=== PATIENT | female | born 1955 | race African-American/Black ===

== ENCOUNTER 2023-09-26 05:22 | Emergency (ER) | payer OTHER ==
[~2023-09-26] VITALS: Ht 175.3 cm; Wt 78.0 kg
[2023-09-26 05:25] VITALS: TEMP 97.3; O2SAT 98
[2023-09-26 06:29] VITALS: BP 172/78; PULSE 78; RESP 19
[2023-09-26] MEDS ORDERED: TOPUD PO (07:06)
== END 2023-09-26 07:39 | disposition home or self-care (01) ==
LOC: ER 05:22
DX: S09.90XA Unspecified injury of head, initial encounter (principal); E11.9 Type 2 diabetes mellitus without complications; I10 Essential (primary) hypertension; W18.2XXA Fall in (into) shower or empty bathtub, initial encounter; Y93.89 Activity, other specified; Y92.89 Other specified places as the place of occurrence of the external cause; Y99.8 Other external cause status
CPT/HCPCS: 99284

== ENCOUNTER 2024-01-02 02:23 | Emergency (ER) | payer OTHER ==
[~2024-01-02] VITALS: Ht 165.1 cm; Wt 82.0 kg
[~2024-01-02 02:23] MED LIST: TOPUD PO
[2024-01-02 02:27] VITALS: O2SAT 100
[2024-01-02] MEDS ORDERED: MORPHINE SULFATE 4 MG/ML INJ (FOR IV/IM USE) IV STA (02:49)
[2024-01-02 03:26] LABS: BASOPHILS % 0.4 % (0.0-2.0); EOSINOPHILS % 0.7 % (0.0-5.0); HEMATOCRIT. 38.1 % (36.0-48.0); HEMOGLOBIN. 13.1 g/dL (12.0-16.0); LYMPHOCYTES % 23.6 % (20.0-50.0); MEAN CORPUSCULAR HEMOGLOBIN 28.5 pg (28.0-32.0); MEAN CORPUSCULAR HGB CONC 34.5 g/dL (31.0-37.0); MEAN CORPUSCULAR VOLUME 82.8 fL (81.0-99.0); MEAN PLATELET VOLUME 8.1 fl (7.4-10.4); MONOCYTES % 4.1 % (2.0-8.0); NEUTROPHILS % 71.2 % (40.0-76.0); PLATELET 316 x1000/uL (130-400); RED CELL DISTRIBUTION WIDTH 13.8 % (11.6-14.6); WHITE BLOOD COUNT 10.7 x1000/uL (4.5-11.0)
[2024-01-02 03:38] LABS: INR 0.9; PROTHROMBIN TIME 10.4 sec (9.6-11.0)
[2024-01-02 04:27] LABS: CHLORIDE 100 mEq/L (98-107); SODIUM 136 mEq/L (136-145)
[2024-01-02 04:28] LABS: ALBUMIN 4.3 g/dL (3.2-4.8); CALCIUM 9.5 mg/dL (8.7-10.4); CARBON DIOXIDE 21 mEq/L (21-32); GLUCOSE 265 mg/dL (70-105); PROTEIN TOTAL 7.9 g/dL (6.0-8.3); UREA NITROGEN BLOOD 15 mg/dL (9-23)
[2024-01-02 04:29] LABS: ALANINE AMINOTRANSFERASE 15 IU/L (10-49); ASPARTATE AMINOTRANSFERASE 23 IU/L (<34); BILIRUBIN TOTAL 0.4 mg/dL (0.1-1.0)
[2024-01-02 04:31] LABS: POTASSIUM 2.7 mEq/L (3.5-5.1)
[2024-01-02] MEDS ORDERED: KCL 10MEQ/50ML PREMIX 50 ML IV ONE ×2 (04:45)
[2024-01-02] MEDS: MORPHINE SULFATE 4 MG/ML INJ (FOR IV/IM USE) IV NR (05:35)
[2024-01-02] MEDS: KCL 10MEQ/50ML PREMIX 50 ML IV SCH (05:40)
[2024-01-02] MEDS ORDERED: IOHEXOL-300 100 ML BOTTLE ONE (05:50)
[2024-01-02] MEDS ORDERED: POTASSIUM CHLORIDE 20MEQ/PACKET PO ONE (06:00)
[2024-01-02] MEDS ORDERED: POTASSIUM CHLORIDE 20MEQ/PACKET PO NR (06:00)
[2024-01-02 07:25] VITALS: TEMP 98
[2024-01-02 09:47] VITALS: BP 163/63; PULSE 74; RESP 15
[2024-01-02] MEDS: KETOROLAC 30MG/ML VIAL IV ONE (09:47)
== END 2024-01-02 09:48 | disposition short-term general hospital (02) ==
LOC: ER 02:23 → EDBEDREQTM 05:25 → EDBEDREQ 05:25 → ER 09:48 → CANBEDREQ 01-04 22:12
DX: E87.6 Hypokalemia (principal); E11.9 Type 2 diabetes mellitus without complications; I10 Essential (primary) hypertension
CPT/HCPCS: 99285; 74177; 96365; 96375; 71045; 80053; 83690; 85025; 85610; 36415; 93005; Q9967; J1885; J3480; J2270